=== PATIENT | male | born 1945 | race Caucasian/White ===

== ENCOUNTER 2016-09-14 23:00 | Observation (INO) | payer MEDICARE ==
[2016-09-15] MEDS ORDERED: ONDANSETRON INJ 4 MG/2 ML VIAL IV ONE (00:21)
--- NOTE | 2016-09-15 01:14 | RAD ---
Procedure: XR CHEST 1 VIEW Exam Date: 09/15/2016 Ordering Provider: Benito Mcleod Clinical Indication: upper abdominal pain, fever Comparison: 12/14/2008 Findings: Cardiac silhouette: Magnified by technique Pulmonary vasculature : Normal Mediastinal contour: Normal Aortic contour: Normal Focal lung consolidation: No focal lung consolidation. Bibasilar subsegmental atelectasis. Pleural effusion: None Pneumothorax: None Acute bony or soft tissue abnormality: No acute osseous abnormalities. Postsurgical changes in the thoracic spine. Impression: 1. No acute abnormalities in the chest. Electronically signed by: Elijah Singleton MD 09/15/2016 1:13 AM CDT
[2016-09-15] MEDS ORDERED: SODIUM CHLORIDE 0.9% 1000ML 1,000 ML IVS ONE (01:39)
--- NOTE | 2016-09-15 01:49 | CT ---
EXAM DESCRIPTION: Abdomen/Pelvis w/wo Contrast09/15/2016 1:40 AM CDT CLINICAL HISTORY: 71 years, Male, right abdominal and flank pain, hepatitis COMPARISON: CT abdomen and pelvis with contrast January 28, 2018 TECHNIQUE: Volumetric CT acquisition was performed through the abdomen and pelvis. Images in the axial and coronal planes were presented for interpretation. Images were obtained before and after the administration of intravenous contrast. This exam was performed according to our departmental dose-optimization program, which includes automated exposure control, adjustment of the mA and/or kV according to patient size and/or use of iterative reconstruction technique. FINDINGS: The visualized portions of the lung bases are clear. The cardiomediastinal structures are within normal limits. Within the upper abdomen, the liver and spleen are normal in size and morphology. The gallbladder is normal in morphology. The intra/extrahepatic biliary tree is normal in appearance. The pancreas and adrenal glands are normal. The right kidney is normal in size and the right ureter is normal in course and caliber. There are no right renal calculi, distal obstructing stones, or evidence of hydronephrosis/hydroureter. The left kidney is normal in size and the left ureter is normal in course and caliber. There are no left renal calculi, distal obstructing stones, or evidence of hydronephrosis/hydroureter. The stomach and small intestines are within normal limits without evidence of bowel dilation or wall thickening. The appendix is well-visualized and normal, best seen on axial image 53 anterior to the right psoas muscle. The colon is stool filled and unremarkable. Within the pelvis, the bladder and rectum are normal. The prostate is age-appropriate. There are no pathologically enlarged inguinal, retroperitoneal, portacaval, or mesenteric lymph nodes. The soft tissue structures of the abdominal wall are normal. There are degenerative changes throughout the thoracolumbar spine with surgical hardware at the L4/L5 level. The abdominal aorta and its primary branches are normal in course and caliber. Limited evaluation of the venous structures demonstrates no gross abnormalities. IMPRESSION: 1. No acute intra-abdominal process. 2. No renal calculi. 3. Surgical and degenerative changes of the lumbar spine. Electronically signed by: Cedric Dennis MD 09/15/2016 1:47 AM CDT Workstation: [id number]
--- NOTE | 2016-09-15 02:25 | ED.PDOC ---
History of Present Illness - General Chief Complaint: Abdominal Pain Stated Complaint: fever, abd pain,R flank pain Time Seen by Provider: 09/15/16 00:19 Source: patient, family - History of Present Illness Initial Comments: Patient presents with N/V and right sided abdominal pain since yesterday. He said it began abruptly after eating ice cream. He states that he "vomited all night". The pain is in the right flank with radiation to the back, is constant , and gets a little better after vomiting. He also noticed a fever and chills today. No diarrhea. Patient has thalassemia minor and associated NIDDM. No other symptoms. He states that he has never been put on a speficic diet for his thalassemia. Last transfusion was two years ago. Timing/Duration: 24 hours Severity: moderate Improving Factors: nothing Worsening Factors: nothing Associated Symptoms: fever/chills, nausea/vomiting Allergies/Adverse Reactions: Allergies Bacitracin [From Neosporin] Allergy (Verified 01/28/13 09:06) Neomycin [From Neosporin] Allergy (Verified 01/28/13 09:06) Polymyxin B [From Neosporin] Allergy (Verified 01/28/13 09:06) Tetanus Toxoid Allergy (Verified 01/28/13 09:05) statins Allergy (Uncoded 01/28/13 09:05) Home Medications: Ambulatory Orders Aspirin [Aspirin EC Low Dose] 81 mg PO 09/15/16 Cinnamon 1,000 mg PO 09/15/16 Cyanocobalamin [Vitamin B-12 Cr] 1,000 mcg PO 09/15/16 Escitalopram Oxalate [Lexapro] 20 mg PO 09/15/16 Folic Acid 1 mg PO 09/15/16 Gabapentin [Neurontin] 300 mg PO 09/15/16 Lisinopril 20 mg PO 09/15/16 Magnesium [Magnesium] 400 mg PO 09/15/16 Metformin HCl 1,000 mg PO 09/15/16 Multiple Vitamins W/ Minerals [Preservision Areds 2] 1 cap PO 09/15/16 [place]-3 Fatty Acids [Fish Oil 1200 mg] 1 cap PO 09/15/16 Red Yeast Rice Extract [Red Yeast Rice] 1,200 mg PO 09/15/16 Timolol Maleate (Ophth) 09/15/16 Review of Systems - Review of Systems Constitutional: States: fever EENTM: States: no symptoms reported Respiratory: States: no symptoms reported Cardiology: States: no symptoms reported Gastrointestinal/Abdominal: States: see HPI Genitourinary: States: no symptoms reported Musculoskeletal: States: no symptoms reported Skin: States: no symptoms reported Neurological: States: no symptoms reported Endocrine: States: no symptoms reported Hematologic/Lymphatic: States: no symptoms reported Past Medical History (General) - Patient Medical History Hx Diabetes: Yes - Vaccination History Immunizations Up to Date: Yes Family Medical History - Family History Mother Family History: Unknown Physical Exam - Physical Exam General Appearance: Alert Eye Exam: bilateral scleral icterus Ears, Nose, Throat: normal ENT inspection Neck: non-tender, full range of motion, supple Respiratory: lungs clear Cardiovascular/Chest: normal peripheral pulses, regular rate, rhythm Gastrointestinal/Abdominal: normal bowel sounds, non tender, soft Back Exam: no CVA tenderness Extremity: no pedal edema Neurologic: other - has chronic shaking of the upper limbs Skin Exam: jaundice Progress - Progress Progress: 09/15/16 02:26 Elevated AST/ALT with normal AP. T. bili 3.7 temp 102.7 wbc 8.7 with 89% neutrophils CT abd/pelvis showed no acute disease. Patient admitted with hepatitis, fever, jaundice Laboratory Tests 09/15/16 09/15/16 09/15/16 00:30 00:30 00:30 WBC 8.7 RBC 5.60 Hgb 10.7 L Hct 34.3 L MCV 61.1 L MCH 19.1 L MCHC 31.1 L RDW 16.3 H Plt Count 202 MPV 8.8 Absolute Neuts (auto) 7.80 H Absolute Lymphs (auto) 0.50 L Absolute Monos (auto) 0.30 Absolute Eos (auto) 0.00 Absolute Basos (auto) 0.00 Neutrophils % 89.3 H Lymphocytes % 6.0 L Monocytes % 3.9 Eosinophils % 0.5 L Basophils % 0.3 Normal RBC Morphology 4+microcytosis Sodium 141 Potassium 4.1 Chloride 106 Carbon Dioxide 24 Anion Gap 15.1 BUN 22 H Creatinine 1.15 BUN/Creatinine Ratio 19.1 Random Glucose 169 H Serum Osmolality 288.5 Calcium 9.2 Total Bilirubin 3.7 H* AST 671 H ALT 431 H Alkaline Phosphatase 99 Creatine Kinase 72 CK-MB (CK-2) 1.0 CK-MB (CK-2) % Not Reportable Troponin I < 0.02 B-Natriuretic Peptide 102.0 H Serum Total Protein 6.8 Albumin 3.9 Globulin 2.9 Albumin/Globulin Ratio 1.3 Lipase Urine Color Urine Appearance Urine pH Ur Specific [place] Urine Protein Urine Glucose (UA) Urine Ketones Urine Blood Urine Nitrite Urine Bilirubin Urine Urobilinogen Ur Leukocyte Esterase Urine RBC Urine WBC Ur Epithelial Cells Urine Bacteria 09/15/16 09/15/16 00:30 01:44 WBC RBC Hgb Hct MCV MCH MCHC RDW Plt Count MPV Absolute Neuts (auto) Absolute Lymphs (auto) Absolute Monos (auto) Absolute Eos (auto) Absolute Basos (auto) Neutrophils % Lymphocytes % Monocytes % Eosinophils % Basophils % Normal RBC Morphology Sodium Potassium Chloride Carbon Dioxide Anion Gap BUN Creatinine BUN/Creatinine Ratio Random Glucose Serum Osmolality Calcium Total Bilirubin AST ALT Alkaline Phosphatase Creatine Kinase CK-MB (CK-2) CK-MB (CK-2) % Troponin I B-Natriuretic Peptide Serum Total Protein Albumin Globulin Albumin/Globulin Ratio Lipase 43 Urine Color [place] Urine Appearance Clear Urine pH 7.0 Ur Specific [place] 1.015 Urine Protein Trace Urine Glucose (UA) Negative Urine Ketones Negative Urine Blood Negative Urine Nitrite Negative Urine Bilirubin Small H Urine Urobilinogen 4.0 H Ur Leukocyte Esterase Negative Urine RBC 0 Urine WBC 0-1 Ur Epithelial Cells 0 Urine Bacteria Rare Departure - Departure Clinical Impression: Hepatitis, Thalassemia minor, Fever Disposition: Admit Patient Condition: Good Departure Forms: ED Discharge - Pt. Copy, Patient Portal Self Enrollment Instructions: DI for Abdominal Pain-Adult Diet: other - as per hospitalist Activity: walking as tolerated Referrals: DAYANA WILLOUGHBY [Primary Care Provider] - 1-2 Weeks Home Medications: Ambulatory Orders Aspirin [Aspirin EC Low Dose] 81 mg PO 09/15/16 Cinnamon 1,000 mg PO 09/15/16 Cyanocobalamin [Vitamin B-12 Cr] 1,000 mcg PO 09/15/16 Escitalopram Oxalate [Lexapro] 20 mg PO 09/15/16 Folic Acid 1 mg PO 09/15/16 Gabapentin [Neurontin] 300 mg PO 09/15/16 Lisinopril 20 mg PO 09/15/16 Magnesium [Magnesium] 400 mg PO 09/15/16 Metformin HCl 1,000 mg PO 09/15/16 Multiple Vitamins W/ Minerals [Preservision Areds 2] 1 cap PO 09/15/16 [place]-3 Fatty Acids [Fish Oil 1200 mg] 1 cap PO 09/15/16 Red Yeast Rice Extract [Red Yeast Rice] 1,200 mg PO 09/15/16 Timolol Maleate (Ophth) 09/15/16
[2016-09-15] MEDS ORDERED: ONDANSETRON INJ 4 MG/2 ML VIAL IV PRN (02:46)
[2016-09-15] MEDS ORDERED: SODIUM CHLORIDE 0.9% (FLUSH) 10 ML SYG IV PRN (02:46)
[2016-09-15] MEDS ORDERED: MAGNESIUM HYDROXIDE 30 ML UD PO PRN (02:46)
[2016-09-15] MEDS ORDERED: IV SET AND CAP CHANGE INJ INJ SCH (03:00)
[2016-09-15] MEDS ORDERED: OMEPRAZOLE CAP 20 MG CAP PO SCH (06:30)
[2016-09-15] MEDS ORDERED: LEVALBUTEROL NEBS 1.25 MG/3 ML VIAL INH SCH (08:00)
[2016-09-15] MEDS ORDERED: SODIUM CHLORIDE 0.9% 1000ML 1,000 ML IVS PRN (09:32)
--- NOTE | 2016-09-15 10:12 | US ---
EXAM DESCRIPTION: Abdomen,Limited CLINICAL HISTORY: Jaundice. Fever COMPARISON: [None.] FINDINGS: Gallbladder demonstrates mild wall thickening 4 mm. No positive sonographic Frederick sign. Minimal sludge. . Common bile duct measures 4-5 mm in the hi hepatis. Liver is enlarged measuring 20.5 cm craniocaudal in the midclavicular line. Marked diffuse increased echotexture consistent with fatty infiltration. No focal abnormality Pancreas is suboptimally evaluated secondary to overlying bowel gas and body habitus. No diagnostic abnormality of the visualized pancreas. Spleen measures 13.4 cm craniocaudal. No focal abnormality Visualized abdominal aorta and inferior vena cava are normal IMPRESSION: Hepatomegaly and diffuse fatty infiltration Minimal gallbladder wall thickening and sludge. No biliary duct dilation/ductal obstruction Electronically signed by: Tin Dougherty MD 09/15/2016 10:11 AM CDT
[2016-09-15] MEDS ORDERED: PIPERACILLIN/TAZOBACTAM 3.375 GM in SODIUM CHLORIDE 0.9% 100ML 100 ML IVPB SCH (10:30)
[2016-09-15] MEDS ORDERED: SODIUM CHLORIDE 0.9% 100ML 100 ML IVPB ONE (10:32)
[2016-09-15] MEDS ORDERED: PIPERACILLIN/TAZOBACTAM 3.375 GM VIAL IVPB ONE (10:32)
--- NOTE | 2016-09-15 11:01 | SSS ---
DATE OF ADMISSION: 09/14/16 DATE OF DISCHARGE: 09/15/16 DISCHARGE DIAGNOSIS: 1. Acute right upper abdominal as well as epigastric pain, possibly related to liver swelling and pressure. 2. Acute febrile illness, temperature 102.7 on admission. 3. Chronic thalassemia minor with possible acute exacerbation. 4. Acute hyperbilirubinemia, primarily unconjugated, worsening. 5. Elevated liver enzymes, worsening overnight. 6. Possible iron deficiency state. 7. Moderate anemia present with marked microcytic/hypochromic, yet with normal red blood cell count, indicative of thalassemia minor presentation. HISTORY OF PRESENT ILLNESS: This 71-year-old, white male is placed in the hospital from the Emergency Room after being brought by his to the Emergency Room after being ill for the last two days. He developed a fever on the day of admission, but became sick at his stomach with increasing right sided and epigastric abdominal pain on the previous day to the admission. He has been a little weak and a little staggering on his gait for the week prior to his coming in. History of thalassemia minor with both his mother and sister having thalassemia major. He has been followed by Dr. Alfaro, continuous dryout operator in [place]. He is also followed by Dr. Alexandra, family practice in [place] as well. History of febrile illness in the past treated in [place] with a month of antibiotics with no source of the infection noted a few years ago. The patient is placed in the hospital for overnight observation to evaluate his response to initial fluid challenge and then to evaluate the next morning with ultrasound and consider the use of significant antibiotics to help cover for the possibility of an underlying ascending cholangitis, etc. PAST MEDICAL HISTORY: 1. Diabetes mellitus on oral hypoglycemic agents. 2. Glaucoma. 3. Macular degeneration. 4. Chronic obstructive pulmonary disease. 5. Thalassemia. PAST SURGICAL HISTORY: 1. Lumbar and thoracic spine surgeries. CURRENT MEDICATIONS: Please refer to nurses notes for a list of home medications verified. ALLERGIES: BACITRACIN, NEOMYCIN, POLYMYXIN, TETANUS TOXOID, AND STATINS WHICH TEND TO AGGRAVATE HIS THALASSEMIA MINOR. FAMILY HISTORY: Positive for coronary artery disease and strokes. 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 He has been off of tobacco use for the last 20 years. REVIEW OF SYSTEMS: CONSTITUTIONAL: No significant weight change. He does have some fever and chills with his current illness. Fever was better on the morning of transfer. HEENT: Decreased vision, especially left eye. Hearing appears to be fairly good. RESPIRATORY: No significant shortness of breath, but he does have some coughing and exertional dyspnea at times. CARDIOVASCULAR: No significant chest pain or palpitations at this time. GASTROINTESTINAL: Loss of appetite with nausea and vomiting last evening and the day previous. Yellow jaundice evident. Urine is dark brown. No blood in the stools. GENITOURINARY: Some burning upon urination earlier today. EXTREMITIES: No significant edema.. NEUROLOGIC: Somewhat weak in the lat week and seemed to be a little bit better today after some IV hydration, though liver enzymes, etc., are worsening, requiring specialized input. PHYSICAL EXAMINATION: VITAL SIGNS: Temperature 102.2, up to 102.4 earlier this morning. Temperature was 99.5 at the time of transfer. Blood pressure 113/65. Pulse 84. Pulse oximetry 97% on 1 liter, 90% on room air. Weight 97.7 kg. GENERAL: The patient awake, alert, oriented and communicative. is also present and assists with the history. HEENT: Unremarkable except for some diminished vision, especially left eye. NECK: Supple. CHEST: Diminished breath sounds. CARDIOVASCULAR: Tones are somewhat distant with no significant gallops. ABDOMEN: Slightly diminished, though present abdominal tones. Tender in the epigastrium to the right upper quadrant with some percussion tenderness to the right CVA region. No specific masses palpable on exam of the abdomen. EXTREMITIES: Well-formed, fairly good range of motion. NEUROLOGIC: No focal neurologic deficits with the patient awake, alert, oriented and communicative. LABORATORY: White count has gone from 8,700 up to 12,200 with 91% neutrophils. Hemoglobin has dropped from 10.7 to 9.9 with a microcytic/hypochromic indices presentation with normal red blood cell count. Platelet count normal. Chemistries show potassium being 4.4, CO2 21, BUN 24, creatinine 1.44, glucose 174. Bilirubin has increased from 3.7 up to 5.4 while liver enzymes have increased with AST 671 up to 719 and ALT 431 up to 577. Alkaline phosphatase normal at 92. Differential on the 3.8 total bilirubin is direct 1.4, indirect 2.4. Beta natriuretic peptide 102. Troponin 0. C-reactive protein 0. Albumin 3.7, lipase 43. Urinalysis is generally clean except urobilinogen present. Hepatitis panel for A, B and C is sent to the reference lab and results pending. Blood cultures are drawn, but results pending. RADIOLOGY: Abdominopelvic CT scan failed to show any significant abnormalities. Chest x-ray on admission showed no acute abnormalities of the chest. Abdominal ultrasound was performed fasting on the morning of discharge and showed some mild hepatomegaly and diffuse fatty infiltration with minimal gallbladder wall thickening and sludge. No biliary duct dilatation evident. HOSPITAL COURSE: The patient was actually feeling a little bit better on the morning of transfer, yet with the worsening laboratory studies and some of the abnormalities on ultrasound. The patient's condition was discussed with Dr. Alfaro, continuous dryout operator/oncologist, who has seen the patient before. Dr. Alfaro suggested that the patient be transferred to the hospitalist service at [facility] so GI service with health consultant as well as Dr. Alfaro on the hematology service can work together to assist in making sure we are not missing a significant pathology event. PLAN: The patient is discharged to be transferred by EMS to [facility] hospitalist service with GI and hematology service followup. The patient requires transfer to allow him to have specialty input on his current problem. He will continue to have close followup with Dr. Alexandra in [place] after his discharge. He is started on Zosyn in an effort to anticipate and to prevent any worsening of an underlying possible infection such as an ascending cholangitis. The patient will require specialist treatment , support, and close clinical followup. #[id number] [facility]
[2016-09-15] MEDS ORDERED: ASPIRIN/ACETAMINOPHEN/CAFFEINE 1 EA TAB PO PRN (14:12)
[2016-09-15 15:33] VITALS: BP 97/55; TEMP 98.5; O2SAT 94
== END 2016-09-15 15:35 | disposition short-term general hospital (02) ==
LOC: ER 23:00 → MS 09-15 02:53
PROVIDERS: ADMIT Emergency Medicine; ATTEND Emergency Medicine
DX: R10.11 Right upper quadrant pain (principal); R10.13 Epigastric pain; R50.9 Fever, unspecified; D56.3 Thalassemia minor; R17 Unspecified jaundice; D50.9 Iron deficiency anemia, unspecified; E11.9 Type 2 diabetes mellitus without complications; R16.0 Hepatomegaly, not elsewhere classified; H40.9 Unspecified glaucoma; H35.30 Unspecified macular degeneration; J44.9 Chronic obstructive pulmonary disease, unspecified; Z79.84 Long term (current) use of oral hypoglycemic drugs; Z79.82 Long term (current) use of aspirin; Z79.899 Other long term (current) drug therapy; Z88.3 Allergy status to other anti-infective agents; Z88.7 Allergy status to serum and vaccine; Z88.8 Allergy status to other drugs, medicaments and biological substances; Z87.891 Personal history of nicotine dependence; Z82.49 Family history of ischemic heart disease and other diseases of the circulatory system; Z82.3 Family history of stroke
CPT/HCPCS: 36415 ×7; 71010; 74178; 76775; 80053 ×2; 80074; 81001; 82247; 82248; 82550; 82553; 82728; 83540; 83550; 83690; 83880; 84484; 85025 ×2; 86140; 87040 ×2; 87077; 87186 ×4; 93005; 94640; 94760 ×2; 96361; 96365; 96366; 96375; 99284; J2405; J2543; J7030 ×2; J7050; J7614

== ENCOUNTER → 2017-08-31 | Outpatient (CLI) | payer MEDICARE ==
--- NOTE | 2017-08-31 17:16 | RAD ---
EXAM DESCRIPTION: Lumbar Spine 3 Views CLINICAL HISTORY: Other intervertebral disc degeneration, lumbar region COMPARISON: None Available. TECHNIQUE: AP/lateral/coned-down lateral FINDINGS: There is anatomic alignment of the vertebral bodies of the lumbar spine. Pedicle screws and interconnecting rods are seen at L4 and L5 with intervening disc spacer. Frontal view shows intact pedicles and transverse processes. Sacrum appears intact with normal SI joints. Lateral view shows no vertebral compressions. Disc height is decreased at L1-2 and L2-3 with anterior spurring. Bones appear osteoporotic. No destructive lesion. Marked facet sclerotic changes at L5-S1. IMPRESSION: Degenerative changes as described. Electronically signed by: Tani Butcher MD 08/31/2017 5:15 PM CDT
== END ==
LOC: RAD 14:47
PROVIDERS: ATTEND Family Medicine
DX: M51.36 Other intervertebral disc degeneration, lumbar region (principal)

== ENCOUNTER 2017-10-11 22:29 | Emergency (ER) | payer MEDICARE ==
--- NOTE | 2017-10-11 22:38 | ED.PDOC ---
History of Present Illness - General Chief Complaint: Chest Pain/[place] Stated Complaint: chest pain Time Seen by Provider: 10/11/17 22:36 Source: RN notes reviewed, Vital Signs reviewed, EMS notes reviewed Exam Limitations: no limitations Additional Information: 72 YEAR OLD PRESENTS WITH SHARP RIGHT SIDED CHEST PAIN ONSET 2 DAYS AGO LASTED BRIEFLY AND YESTERDAY HE DID WELL TODAY HE EXPERIENCED THE SHARP PAIN AGAIN ON THE RIGHT CHEST NOT RADIATING NO ASSOCIATED ARM NECK JAW PAIN HE HAS NO RISK FOR PE HE HAS HAD A NORMAL STRESS TEST BY DR BERRY 2 YEARS AGO - History of Present Illness Timing/Duration: 1-3 hours Severity/Quality: moderate Location: substernal Chest Pain Radiation: no radiation Activities at Onset: none Prior Chest Pain/Cardiac Workup: echocardiography, stress test Improving Factors: nothing Worsening Factors: nothing Associated Symptoms: denies symptoms Allergies/Adverse Reactions: Allergies Bacitracin [From Neosporin] Allergy (Verified 01/28/13 09:06) Neomycin [From Neosporin] Allergy (Verified 01/28/13 09:06) Polymyxin B [From Neosporin] Allergy (Verified 01/28/13 09:06) Tetanus Toxoid Allergy (Verified 01/28/13 09:05) statins Allergy (Uncoded 01/28/13 09:05) Home Medications: Ambulatory Orders Aspirin [Aspirin EC Low Dose] 81 mg PO DAILY@69909/15/16 Cholecalciferol [D3 2000] 1,000 unit PO DAILY@69909/15/16 Cinnamon 1,000 mg PO BID 09/15/16 Cyanocobalamin [Vitamin B-12 Cr] 1,000 mcg PO DAILY@69909/15/16 Escitalopram Oxalate [Lexapro] 20 mg PO DAILY 09/15/16 Folic Acid 1 mg PO DAILY 09/15/16 Gabapentin [Neurontin] 300 mg PO TID 09/15/16 Lisinopril 20 mg PO DAILY 09/15/16 Magnesium 400 mg PO DAILY@69909/15/16 Metformin HCl 1,000 mg PO BID 09/15/16 Multiple Vitamins W/ Minerals [Preservision Areds 2] 1 cap PO DAILY@699 [place]-3 Fatty Acids [Fish Oil 1200 mg] 2 cap PO BID 09/15/16 Preservision Areds 2 1 tablet PO BID 09/15/16 Timolol Maleate (Ophth) 0.5 drop BOTH_EYES DAILY@0700 09/15/16 Travoprost [Travatan Z] 1 drop BOTH_EYES BEDTIME 09/15/16 Methylprednisolone [Medrol Dose Hong] 4 mg PO DAILY 6 Days #21 tab 10/12/17 Review of Systems - Review of Systems Constitutional: States: no symptoms reported EENTM: States: no symptoms reported Respiratory: States: no symptoms reported Cardiology: States: see HPI Gastrointestinal/Abdominal: States: no symptoms reported Genitourinary: States: no symptoms reported Musculoskeletal: States: no symptoms reported Skin: States: no symptoms reported Neurological: States: no symptoms reported Endocrine: States: no symptoms reported Hematologic/Lymphatic: States: no symptoms reported Past Medical History (General) - Patient Medical History Hx Seizures: No Hx Stroke: No Hx Asthma: No Hx of COPD: Yes Hx Congestive Heart Failure: No Hx Pacemaker: No Hx Hypertension: Yes Hx Diabetes: Yes Hx MRSA: No - Social History Hx Alcohol Use: No Hx Substance Use: No Hx Physical Abuse: No Hx Emotional Abuse: No Family Medical History - Family History Mother Family History: Unknown Hx Family Asthma: No Hx Family Congestive Heart Failure: No Hx Family Hypertension: - dont know Hx Family Stroke: Yes Hx Cardiac Disease: No Hx Family Diabetes: No Hx Family Cancer: Yes Physical Exam - Physical Exam General Appearance: Alert, Comfortable Eyes, Ears, Nose, Throat Exam: PERRL/EOMI, normal ENT inspection, TMs normal, pharynx normal Neck: non-tender, full range of motion, supple Respiratory: chest non-tender, lungs clear, normal breath sounds, no respiratory distress, no accessory muscle use Cardiovascular/Chest: normal peripheral pulses, regular rate, rhythm, no edema, no gallop, no JVD, no murmur Peripheral Pulses: radial,right: 2+, radial,left: 2+, femoral,right: 2+, femoral ,left: 2+ Gastrointestinal/Abdominal: normal bowel sounds, non tender, soft, no organomegaly Extremity: normal range of motion, non-tender, normal inspection, no pedal edema 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 Copy, Patient Portal Self Enrollment Instructions: DI for Chest Pain Referrals: DAYANA WILLOUGHBY [Primary Care Provider] - 1-2 Weeks Prescriptions: Methylprednisolone [Medrol Dose Hong] 4 mg PO DAILY 6 Days #21 tab Home Medications: Ambulatory Orders Aspirin [Aspirin EC Low Dose] 81 mg PO DAILY@69909/15/16 Cholecalciferol [D3 2000] 1,000 unit PO DAILY@69909/15/16 Cinnamon 1,000 mg PO BID 09/15/16 Cyanocobalamin [Vitamin B-12 Cr] 1,000 mcg PO DAILY@69909/15/16 Escitalopram Oxalate [Lexapro] 20 mg PO DAILY 09/15/16 Folic Acid 1 mg PO DAILY 09/15/16 Gabapentin [Neurontin] 300 mg PO TID 09/15/16 Lisinopril 20 mg PO DAILY 09/15/16 Magnesium 400 mg PO DAILY@69909/15/16 Metformin HCl 1,000 mg PO BID 09/15/16 Multiple Vitamins W/ Minerals [Preservision Areds 2] 1 cap PO DAILY@699 [place]-3 Fatty Acids [Fish Oil 1200 mg] 2 cap PO BID 09/15/16 Preservision Areds 2 1 tablet PO BID 09/15/16 Timolol Maleate (Ophth) 0.5 drop BOTH_EYES DAILY@69909/15/16 Travoprost [Travatan Z] 1 drop BOTH_EYES BEDTIME 09/15/16 Methylprednisolone [Medrol Dose Hong] 4 mg PO DAILY 6 Days #21 tab 10/12/17
--- NOTE | 2017-10-11 22:57 | RAD ---
EXAM DESCRIPTION: Single view of the chest CLINICAL HISTORY: CHEST PAIN COMPARISON: 09/15/2016 FINDINGS: Single frontal view of the chest. Low lung volumes. Leads overlie the chest. Heart is not enlarged. No lobar consolidation, pneumothorax, or pleural effusion. Postoperative change of the thoracic spine. No acute osseous abnormality. Upper abdominal soft tissues are unremarkable. IMPRESSION: 1. No acute pulmonary process identified. Electronically signed by: Gelacio Pickens 10/11/2017 10:56 PM CDT
[2017-10-11] MEDS ORDERED: ALBUTEROL SULFATE 2.5 MG/3 ML VIAL NEB ONE ×2 (23:01→23:06)
[2017-10-12 00:02] VITALS: O2SAT 97
[2017-10-12] MEDS ORDERED: DEXAMETHASONE INJ 10 MG/ML VIAL ONE (00:06)
[2017-10-12] MEDS ORDERED: DEXAMETHASONE INJ 10 MG/ML VIAL IV ONE (00:11)
[2017-10-12 00:54] VITALS: BP 138/80; TEMP 98.6
== END 2017-10-12 00:54 | disposition home or self-care (01) ==
LOC: ER 22:29
DX: R07.2 Precordial pain (principal); J44.1 Chronic obstructive pulmonary disease with (acute) exacerbation; I10 Essential (primary) hypertension; E11.9 Type 2 diabetes mellitus without complications; Z88.7 Allergy status to serum and vaccine; Z88.8 Allergy status to other drugs, medicaments and biological substances; Z79.84 Long term (current) use of oral hypoglycemic drugs; Z79.82 Long term (current) use of aspirin; Z79.899 Other long term (current) drug therapy
CPT/HCPCS: 36415; 71045; 80048; 80076; 82550; 82553; 84484; 85025; 85610; 85730; 93005; 94640; J1100; J7611

== ENCOUNTER 2019-10-17 19:24 | Emergency (ER) | payer MEDICARE ==
--- NOTE | 2019-10-17 21:07 | RAD ---
EXAM DESCRIPTION: Wrist,Right 2 Views CLINICAL HISTORY: fall, having pain COMPARISON: None. FINDINGS: AP and lateral radiographs of the right wrist. There is no discrete acute fracture or dislocation. Bone mineralization is within normal limits. There is no radiopaque foreign body material. IMPRESSION: No acute fracture or dislocation. Electronically signed by: Jw Saeed MD 10/17/2019 9:05 PM CDT
--- NOTE | 2019-10-17 21:12 | RAD ---
EXAM DESCRIPTION: XR Knee, Right 1 or 2 Views (accession [id number]) CLINICAL HISTORY: fall, having pain TECHNIQUE: Two views of the right knee are submitted. COMPARISON: None available for comparison FINDINGS: Bones: No acute fracture. Joints: Mild tricompartmental degenerative changes. No dislocation. No appreciable joint effusion. Soft tissues: Unremarkable IMPRESSION: No acute injury. EXAM DESCRIPTION: XR Tibia/Fibula, Right (accession [id number]) CLINICAL HISTORY: fall, having pain TECHNIQUE: Two views of the right lower leg are submitted. COMPARISON: None available for comparison FINDINGS: Bones: No acute fracture. Joints: No dislocation. Soft tissues: Unremarkable IMPRESSION: No acute injury. Electronically signed by: Syed Munoz MD 10/17/2019 9:10 PM CDT
--- NOTE | 2019-10-17 21:12 | RAD ---
EXAM DESCRIPTION: XR Knee, Right 1 or 2 Views (accession [id number]) CLINICAL HISTORY: fall, having pain TECHNIQUE: Two views of the right knee are submitted. COMPARISON: None available for comparison FINDINGS: Bones: No acute fracture. Joints: Mild tricompartmental degenerative changes. No dislocation. No appreciable joint effusion. Soft tissues: Unremarkable IMPRESSION: No acute injury. EXAM DESCRIPTION: XR Tibia/Fibula, Right (accession [id number]) CLINICAL HISTORY: fall, having pain TECHNIQUE: Two views of the right lower leg are submitted. COMPARISON: None available for comparison FINDINGS: Bones: No acute fracture. Joints: No dislocation. Soft tissues: Unremarkable IMPRESSION: No acute injury. Electronically signed by: Syed Munoz MD 10/17/2019 9:10 PM CDT
[2019-10-17] MEDS ORDERED: ACETAMINOPHEN W/COD #3 TAB 1 EA TAB PO ONE (21:25)
[2019-10-17 21:27] VITALS: O2SAT 98
--- NOTE | 2019-10-17 21:59 | RAD ---
EXAM: Hand,Right 3 Views CLINICAL INDICATION: Right hand pain COMPARISON: There is no previous study for comparison. FINDINGS: Three views of the right hand reveal no fracture. There are no radiopaque foreign bodies. There is no dislocation. No bony destruction is seen to suggest osteomyelitis. The osseous structures are intact and unremarkable. IMPRESSION: Negative right hand radiographs. Electronically signed by: Jw Steinberg MD 10/17/2019 9:57 PM CDT
--- NOTE | 2019-10-17 22:16 | ED.PDOC ---
History of Present Illness - General Chief Complaint: Trauma Stated Complaint: Fall wrist pain Time Seen by Provider: 10/17/19 20:18 Additional Information: Patient is a 74-year-old male who presents to the ED with chief complaint of right wrist pain. Patient had a mechanical fall last night and landed on his right wrist. Since then he has had pain in the wrist but he is able to move it. Patient also bumped his head but denies loss of consciousness or meaningful headache. He denies neck pain, back pain, chest pain, abdominal pain. Patient indicates he bumped his knee but he is able to ambulate without difficulty. Patient has no other complaints. He indicates his pain is only mild to moderate, 4/10. - History of Present Illness Allergies/Adverse Reactions: Allergies Bacitracin [From Neosporin] Allergy (Verified 01/28/13 09:06) Neomycin [From Neosporin] Allergy (Verified 01/28/13 09:06) Polymyxin B [From Neosporin] Allergy (Verified 01/28/13 09:06) Tetanus Toxoid Allergy (Verified 01/28/13 09:05) statins Allergy (Uncoded 01/28/13 09:05) Home Medications: Ambulatory Orders Aspirin [Aspirin EC Low Dose] 81 mg PO DAILY@69909/15/16 Cholecalciferol [D3 2000] 1,000 unit PO DAILY@69909/15/16 Cinnamon 1,000 mg PO BID 09/15/16 Cyanocobalamin [Vitamin B-12 Cr] 1,000 mcg PO DAILY@69909/15/16 Escitalopram Oxalate [Lexapro] 20 mg PO DAILY 09/15/16 Folic Acid 1 mg PO DAILY 09/15/16 Gabapentin [Neurontin] 300 mg PO TID 09/15/16 Lisinopril 20 mg PO DAILY 09/15/16 Magnesium 400 mg PO DAILY@69909/15/16 Metformin HCl [Metformin Hydrochloride] 1,000 mg PO BID 09/15/16 Multiple Vitamins W/ Minerals [Preservision Areds 2] 1 cap PO DAILY@69909/15/16 Mallie-3 Fatty Acids [Fish Oil 1200 mg] 2 cap PO BID 09/15/16 Preservision Areds 2 1 tablet PO BID 09/15/16 Timolol Maleate (Ophth) 0.5 drop BOTH_EYES DAILY@69917 Travoprost [Travatan Z] 1 drop BOTH_EYES BEDTIME 09/15/16 Methylprednisolone [Medrol Dose Hong] 4 mg PO DAILY 6 Days #21 tab 10/12/17 Cyclobenzaprine HCl [Flexeril] 10 mg PO Q8H PRN #20 tab 10/17/19 Ibuprofen 800 mg PO Q8H PRN #20 tab 10/17/19 Review of Systems - Review of Systems Constitutional: States: no symptoms reported EENTM: States: no symptoms reported Respiratory: States: no symptoms reported Cardiology: States: no symptoms reported Gastrointestinal/Abdominal: States: no symptoms reported Musculoskeletal: States: see HPI Neurological: States: no symptoms reported All other Systems: Reviewed and Negative Past Medical History (General) - Patient Medical History Hx Seizures: No Hx Stroke: No Hx Asthma: No Hx of COPD: Yes Hx Congestive Heart Failure: No Hx Pacemaker: No Hx Hypertension: Yes Hx Diabetes: Yes Hx MRSA: No Surgical History: cholecystectomy - Vaccination History Hx Tetanus, Diphtheria Vaccination: - allergy Hx Influenza Vaccination: Yes Hx Pneumococcal Vaccination: Yes - Social History Hx Tobacco Use: No Hx Alcohol Use: No Hx Substance Use: No Hx Physical Abuse: No Hx Emotional Abuse: No Family Medical History - Family History Mother Family History: Unknown Hx Family Asthma: No Hx Family Congestive Heart Failure: No Hx Family Hypertension: - dont know Hx Family Stroke: Yes Hx Cardiac Disease: No Hx Family Diabetes: No Hx Family Cancer: Yes Physical Exam - Physical Exam General Appearance: Alert, Comfortable, No apparent distress, Well Developed, Well Nourished Ears, Nose, Throat: other - Scalp nontender, negative hematoma Neck: non-tender, full range of motion, supple, normal inspection Respiratory: chest non-tender, lungs clear, normal breath sounds, no respiratory distress Cardiovascular/Chest: normal peripheral pulses, regular rate, rhythm, no edema Peripheral Pulses: radial,right: 2+, radial,left: 2+ Back Exam: normal inspection, no CVA tenderness, no vertebral tenderness Extremity: other - Mild to moderate tenderness to palpation over the right ulnar styloid. Near full range of motion wrist, with discomfort. Hand is nontender and forearm is nontender. Progress - Progress Progress: 10/17/19 22:17 Patient's imaging is unremarkable and clinically patient with sprain only. Will DC with analgesics and give a Velcro wrist immobilizer and patient to rest and follow-up with his PCP this week. Vital signs stable, patient is NAD and looks clinically well and I believe is safe for discharge with outpatient follow-up. Follow-up instructions, discharge instructions and return to ED precautions discussed with patient. Patient voices understanding and willingness to comply with instructions. All radiographic results have been discussed with the patient, and all questions answered. Patient is happy with plan. Departure - Departure Clinical Impression: Right wrist sprain Qualifiers: Encounter type: initial encounter Qualified Code(s): S63.501A - Unspecified sprain of right wrist, initial encounter Time of Disposition: 22:20 Disposition: Discharge to Home or Self Care Condition: Fair Departure Forms: ED Discharge - Pt. Copy, Patient Portal Self Enrollment Instructions: DI for Trauma, Wrist Sprain (DC) Referrals: DAYANA WILLOUGHBY [Primary Care Provider] - 1 Week Prescriptions: Cyclobenzaprine HCl [Flexeril] 10 mg PO Q8H PRN #20 tab PRN Reason: Pain Ibuprofen 800 mg PO Q8H PRN #20 tab PRN Reason: Pain Home Medications: Ambulatory Orders Aspirin [Aspirin EC Low Dose] 81 mg PO DAILY@69909/15/16 Cholecalciferol [D3 2000] 1,000 unit PO DAILY@69909/15/16 Cinnamon 1,000 mg PO BID 09/15/16 Cyanocobalamin [Vitamin B-12 Cr] 1,000 mcg PO DAILY@69909/15/16 Escitalopram Oxalate [Lexapro] 20 mg PO DAILY 09/15/16 Folic Acid 1 mg PO DAILY 09/15/16 Gabapentin [Neurontin] 300 mg PO TID 09/15/16 Lisinopril 20 mg PO DAILY 09/15/16 Magnesium 400 mg PO DAILY@69909/15/16 Metformin HCl [Metformin Hydrochloride] 1,000 mg PO BID 09/15/16 Multiple Vitamins W/ Minerals [Preservision Areds 2] 1 cap PO DAILY@69909/15/16 Mallie-3 Fatty Acids [Fish Oil 1200 mg] 2 cap PO BID 09/15/16 Preservision Areds 2 1 tablet PO BID 09/15/16 Timolol Maleate (Ophth) 0.5 drop BOTH_EYES DAILY@69909/15/16 Travoprost [Travatan Z] 1 drop BOTH_EYES BEDTIME 09/15/16 Methylprednisolone [Medrol Dose Hong] 4 mg PO DAILY 6 Days #21 tab 10/12/17 Cyclobenzaprine HCl [Flexeril] 10 mg PO Q8H PRN #20 tab 10/17/19 Ibuprofen 800 mg PO Q8H PRN #20 tab 10/17/19
[2019-10-17 22:33] VITALS: BP 146/74; TEMP 97.8
--- NOTE | 2019-10-18 17:18 | RAD ---
EXAM DESCRIPTION: XR Knee, Right 1 or 2 Views (accession [id number]) CLINICAL HISTORY: fall, having pain TECHNIQUE: Two views of the right knee are submitted. COMPARISON: None available for comparison FINDINGS: Bones: No acute fracture. Joints: Mild tricompartmental degenerative changes. No dislocation. No appreciable joint effusion. Soft tissues: Unremarkable IMPRESSION: No acute injury. EXAM DESCRIPTION: XR Tibia/Fibula, Right (accession [id number]) CLINICAL HISTORY: fall, having pain TECHNIQUE: Two views of the right lower leg are submitted. COMPARISON: None available for comparison FINDINGS: Bones: No acute fracture. Joints: No dislocation. Soft tissues: Unremarkable IMPRESSION: No acute injury. Electronically signed by: Syed Munoz MD 10/17/2019 9:10 PM CDT
--- NOTE | 2019-10-18 17:18 | RAD ---
EXAM DESCRIPTION: XR Knee, Right 1 or 2 Views (accession [id number]) CLINICAL HISTORY: fall, having pain TECHNIQUE: Two views of the right knee are submitted. COMPARISON: None available for comparison FINDINGS: Bones: No acute fracture. Joints: Mild tricompartmental degenerative changes. No dislocation. No appreciable joint effusion. Soft tissues: Unremarkable IMPRESSION: No acute injury. EXAM DESCRIPTION: XR Tibia/Fibula, Right (accession [id number]) CLINICAL HISTORY: fall, having pain TECHNIQUE: Two views of the right lower leg are submitted. COMPARISON: None available for comparison FINDINGS: Bones: No acute fracture. Joints: No dislocation. Soft tissues: Unremarkable IMPRESSION: No acute injury. Electronically signed by: Syed Munoz MD 10/17/2019 9:10 PM CDT
== END 2019-10-17 22:34 | disposition home or self-care (01) ==
LOC: ER 19:24
DX: S63.501A Unspecified sprain of right wrist, initial encounter (principal); M25.561 Pain in right knee; J44.9 Chronic obstructive pulmonary disease, unspecified; I10 Essential (primary) hypertension; E11.9 Type 2 diabetes mellitus without complications; Z88.7 Allergy status to serum and vaccine; Z79.899 Other long term (current) drug therapy; Z79.84 Long term (current) use of oral hypoglycemic drugs; Z79.82 Long term (current) use of aspirin; Z88.8 Allergy status to other drugs, medicaments and biological substances; W18.30XA Fall on same level, unspecified, initial encounter; Y92.9 Unspecified place or not applicable